=== PATIENT | male | born 1950 | race Caucasian/White ===

== ENCOUNTER 2016-11-07 16:14 | Inpatient (IN) | payer MEDICARE ==
[2016-11-07] MEDS ORDERED: Sodium Chloride 0.9% 1,000 ML ONE (16:37)
[2016-11-07] MEDS ORDERED: Sodium Chloride 0.9% 1,000 ML IV ONE (16:38)
--- NOTE | 2016-11-07 16:45 | C.PDOC ---
History Of Present Illness 66 y/o male, past medical history of HIV and on immunosuppressive anti-viral meds, c/o generalized abdominal pain for 3-4 days. Patient also reports nausea and states he has been unable to eat or drink. Also reports he has not had a bowel movement in 3 days and notes he has had painful urination. Denies any vomiting, fever, chills. Also notes he has been feeling generalized weakness. Time Seen by Provider: 11/07/16 16:22 Chief Complaint (Nursing): Abdominal Pain History Per: Patient History/Exam Limitations: no limitations Onset/Duration Of Symptoms: Days Current Symptoms Are (Timing): Still Present Location Of Pain/Discomfort: Diffuse Associated Symptoms: Nausea, Loss Of Appetite, Urinary Symptoms. denies: Fever , Chills, Vomiting, Diarrhea, Back Pain Recent travel outside of the [place]: No Past Medical History Reviewed: Historical Data, Nursing Documentation, Vital Signs Vital Signs: Last Vital Signs Temp 97.8 F 11/07/16 16:26 Pulse 73 11/07/16 16:26 Resp 18 11/07/16 16:26 BP 107/52 L 11/07/16 16:26 Pulse Ox 97 11/07/16 16:45 - Medical History PMH: HIV, HTN Family History: States: Unknown Family Hx - Social History Hx Alcohol Use: No Hx Substance Use: No - Immunization History Hx Tetanus Toxoid Vaccination: No Hx Influenza Vaccination: No Hx Pneumococcal Vaccination: No Review Of Systems Except As Marked, All Systems Reviewed And Found Negative. Constitutional: Positive for: Weakness. Negative for: Fever, Chills ENT: Negative for: Throat Pain Cardiovascular: Negative for: Chest Pain Respiratory: Negative for: Cough, Wheezing Gastrointestinal: Positive for: Nausea, Abdominal Pain, Constipation. Negative for: Vomiting, Diarrhea Genitourinary: Positive for: Dysuria. Negative for: Hematuria Musculoskeletal: Negative for: Back Pain Skin: Negative for: Rash Neurological: Negative for: Headache Physical Exam - Physical Exam Appears: Non-toxic, No Acute Distress Skin: Warm, Dry Head: Atraumatic, Normacephalic Oral Mucosa: Dry Neck: Supple Chest: Symmetrical Cardiovascular: Rhythm Regular Respiratory: Normal Breath Sounds, No Rales, No Rhonchi, No Wheezing Gastrointestinal/Abdominal: Bowel Sounds (active ), Soft, Tenderness (sporadic tenderness to deep palpation ), Distention, No Guarding, No Rebound Back: Normal Inspection Extremity: Normal ROM, Capillary Refill (< 2 sec.) Neurological/Psych: Oriented x3, Normal Speech, Normal Cognition ED Course And Treatment - Laboratory Results Result Diagrams: 11/07/16 16:44 11/07/16 16:44 Lab Interpretation: Abnormal Interpretation Of Abnormal: WBC 1.9 with 81% neutrophils. Urine WBC 43 with moderate bacteria and 3+ leukocyte esterase. O2 Sat by Pulse Oximetry: 97 (RA) Pulse Ox Interpretation: Normal - Other Rad Obstructive series X-Ray: Interpreted by Me Interpretation: Increased stool throughout colon without evidence of obstruction or free air. Progress Note: Treated with Toradol, Zofran, and IV fluids. Labs and obstructive series x-ray ordered. Reevaluation Time: 18:35 Reassessment Condition: Unchanged - Physician Consult Information Outcome Of Conversation: Case discussed with DR Kulkarni. Patient to be admitted for treatment of UTI in immunocompromised patient. Disposition - Disposition Disposition: HOSPITALIZED Disposition Time: 18:36 Condition: STABLE - POA Present On Arrival: None - Clinical Impression Clinical Impression: UTI (urinary tract infection), bacterial, HIV (human immunodeficiency virus infection) - Scribe Statement The provider has reviewed the documentation as recorded by the Leann Krause Provider Attestation: All medical record entries made by the Leann were at my direction and personally dictated by me. I have reviewed the chart and agree that the record accurately reflects my personal performance of the history, physical exam, medical decision making, and the department course for this patient. I have also personally directed, reviewed, and agree with the discharge instructions and disposition.
[2016-11-07 16:55] LABS: BASO % 0.4 % (0.0-2.0); EOS % 0.5 % (0.0-4.0); LYMPH # 0.2 K/uL (1.0-4.3); MEAN CORPUSCULAR HEMOGLOBIN 27.7 pg (27.0-31.0); MEAN CORPUSCULAR HGB CONC 31.8 g/dL (33.0-37.0); MEAN PLATELET VOLUME 10.3 fL (7.2-11.7); MONO # 0.4 K/uL (0.0-0.8); MONO % 20.2 % (0.0-10.0); RED CELL DISTRIBUTION WIDTH 15.7 % (11.5-14.5)
[2016-11-07 17:00] LABS: MEAN CELL VOLUME 87.2 fL (80.0-94.0); PLATELET COUNT 59 K/uL (130-400); WHITE BLOOD COUNT 1.9 K/uL (4.8-10.8)
[2016-11-07 17:15] LABS: CHLORIDE 107 mmol/L (98-107)
[2016-11-07 17:16] LABS: POTASSIUM 4.3 mmol/L (3.6-5.2); SODIUM 140 mmol/L (132-148)
[2016-11-07 17:18] LABS: ALB/GLOB RATIO 1.1 (1.0-2.1); ALKALINE PHOSPHATASE 146 U/L (38-126); AST/SGOT 65 U/L (17-59); BILIRUBIN,TOTAL 0.8 mg/dL (0.2-1.3); CARBON DIOXIDE 24 mmol/L (22-30); GFR AFRICAN-AMERICAN > 60
[2016-11-07 17:19] LABS: ALT/SGPT 50 U/L (21-72); BLOOD UREA NITROGEN 13 mg/dL (9-20); CALCIUM 8.4 mg/dl (8.6-10.4); GLUCOSE,RANDOM 266 mg/dL (75-110)
[2016-11-07 18:06] LABS: EOSINOPHIL 1 % (0-4); NEUTROPHIL 81 % (50-75); TOTAL CELLS COUNTED 100
[2016-11-07] MEDS ORDERED: cefTRIAXone IV 1 gm in Dextros 50 ML IVPB ONE ×2 (18:31→18:51)
[2016-11-07 20:25] LABS: RBC URINE < 1 /hpf (0-3); URINE BACTERIA RARE (<OCC); URINE BILIRUBIN NEGATIVE (NEGATIVE); URINE BLOOD NEGATIVE (NEGATIVE); URINE COLOR Amber (YELLOW); URINE GLUCOSE (UA) 3+ mg/dL (Normal); URINE KETONE NEGATIVE (NEGATIVE); URINE LEUKOCYTE ESTERASE NEG Leu/uL (Negative); URINE PROTEIN 1+ mg/dL (NEGATIVE); WBC URINE 3 /hpf (0-5)
--- NOTE | 2016-11-07 21:18 | CP.PCM.HP ---
History of Present Illness - History of Present Illness History of Present Illness: CC: stomach pain HPI: 66 M PMHx HIV+, HTN, DM2, Hepatitis C presenting with abdominal pain for 3- 4 days. Patient reports the pain began with no inciting event and has been intermittent over the past 3-4 days. He reports it is sharp stabbing and cramping in nature like a band across his stomach. He also reports no BM in 3 days and nausea but no vomiting. Patient has not eaten any solid food in 3 days but he has been drinking water and is hungry. He reports that when he went to the bathroom when bearing down/straining he would feel dizzy with the effort. He also complains of dysuria and burning on urination. Patient has increased urinary frequency but reports that he doesn't feel like he is urinating correctly and is straining. He denies shira hematuria but reports that he feels like his urine has been darker. He admits to chills, weakness, headache, dizziness, sore throat, abdominal pain, nausea, constipation, dysuria, urinary frequency, back pain, and a decrease in appetite. He denies fevers, diaphoresis , lightheadedness, change in vision, change in hearing, dysphagia, chest pain, palpitations, SOB, cough, vomiting, hematemesis, diarrhea, hematochezia, leg pain/swelling, rash, bruising, bleeding, travel, sickness, sick contacts. Patient is also a heroin abuser and has been injecting for the past 30 years on and off. Patient has tried to quit but relapses; last time he was on methadone was 2 years ago. Patient reports last use was day before admission when he injected 3 bags. He usually uses >3bags [basically however much he can get]. PMHx: HIV+, HTN, DM2, Hepatitis C PSHx: denies ALL: NKDA Medications: ASA 81mg po daily, Metformin 500mg po bid, Truvada, Ritonavir Social Hx: former tobacco use- quit 10 years ago but used to smoke 1 ppd for 10 days. Used to drink EtOH but has not drank in 17 years. Injects heroin >3bags/ day almost everyday or whenever he can over the past 30 years- patient has tried to quit but relapses; last use was the day before admission when he injected 3 bags. Used to be on methadone 2 years ago. Is on social security and does not work. Family Hx: mother and brother with "heart condition" father from CVA PMD: Gergorio ROS: Denies fevers, diaphoresis, lightheadedness, change in vision, change in hearing, dysphagia, chest pain, palpitations, SOB, cough, vomiting, hematemesis , diarrhea, hematochezia, leg pain/swelling, rash, bruising, bleeding, travel, sickness, sick contacts Admits chills, weakness, headache, dizziness, sore throat, abdominal pain, nausea, constipation, dysuria, urinary frequency, back pain, and a decrease in appetite Present on Admission - Present on Admission Any Indicators Present on Admission: No Review of Systems - Constitutional Constitutional: As Per HPI, Chills, Weakness. absent: Fever - EENT Eyes: As Per HPI. absent: Change in Vision Ears: As Per HPI, Dizziness. absent: Abnormal Hearing Nose/Mouth/Throat: As Per HPI, Sore Throat. absent: Dysphagia - Cardiovascular Cardiovascular: As Per HPI. absent: Chest Pain, Diaphoresis, Edema, Palpitations - Respiratory Respiratory: As Per HPI. absent: Cough, Chest Congestion - Gastrointestinal Gastrointestinal: As Per HPI, Abdominal Pain, Constipation, Cramping, Nausea. absent: Diarrhea, Vomiting - Genitourinary Genitourinary: As Per HPI, Dysuria, Urinary Frequency, Urinary Hesitance. absent: Hematuria, Pyuria - Musculoskeletal Musculoskeletal: As Per HPI, Back Pain. absent: Numbness, Tingling - Integumentary Integumentary: As Per HPI. absent: Rash, Wounds, Jaundice - Neurological Neurological: As Per HPI, Dizziness, Headaches, Weakness. absent: Numbness - Psychiatric Psychiatric: As Per HPI. absent: Anxiety, Depression - Endocrine Endocrine: As Per HPI. absent: Palpitations, Polydipsia, Polyphagia, Polyuria - Hematologic/Lymphatic Hematologic: As Per HPI. absent: Easy Bleeding, Easy Bruising, Lymphadenopathy Past Patient History - Infectious Disease Hx of Infectious Diseases: None - Past Social History Smoking Status: Former Smoker - CARDIAC Hx Hypertension: Yes - ENDOCRINE/METABOLIC Hx Diabetes Mellitus Type 2: Yes - HEMATOLOGICAL/ONCOLOGICAL Hx Human Immunodeficiency Virus (HIV): Yes - PSYCHIATRIC Hx Substance Use: No - SURGICAL HISTORY Hx Surgeries: No Meds Allergies/Adverse Reactions: Allergies Allergy/AdvReac Type Severity Reaction Status Date / Time No Known Allergies Allergy Unverified 03/25/15 20:54 Physical Exam - Constitutional Appears: Non-toxic, No Acute Distress - Head Exam Head Exam: ATRAUMATIC, NORMAL INSPECTION, NORMOCEPHALIC - Eye Exam Eye Exam: EOMI, Normal appearance. absent: Conjunctival injection, Scleral icterus - ENT Exam ENT Exam: Mucous Membranes Moist - Neck Exam Neck exam: Positive for: Full Rom, Normal Inspection. Negative for: Lymphadenopathy, Tenderness - Respiratory Exam Respiratory Exam: Clear to Auscultation Bilateral, NORMAL BREATHING PATTERN. absent: Accessory Muscle Use, Rales, Rhonchi, Wheezes, Respiratory Distress - Cardiovascular Exam Cardiovascular Exam: REGULAR RHYTHM, RRR, +S1, +S2. absent: Systolic Murmur - GI/Abdominal Exam GI & Abdominal Exam: Hyperactive Bowel Sounds, Soft, Tenderness (diffuse to deep palpation). absent: Firm, Guarding, Rigid - Extremities Exam Extremities exam: Positive for: normal capillary refill, normal inspection, pedal pulses present. Negative for: pedal edema, tenderness - Back Exam Back exam: NORMAL INSPECTION. absent: tenderness - Neurological Exam Neurological exam: Alert, CN II-XII Intact, Oriented x3 - Psychiatric Exam Psychiatric exam: Normal Affect, Normal Mood - Skin Skin Exam: Dry, Intact, Normal Color, Warm Results - Vital Signs Recent Vital Signs: Last Vital Signs Temp 97.9 F 11/07/16 20:18 Pulse 63 11/07/16 20:18 Resp 16 11/07/16 20:18 BP 123/61 11/07/16 20:18 Pulse Ox 97 11/07/16 20:18 - Labs Result Diagrams: 11/07/16 16:44 11/07/16 16:44 Labs: Laboratory Results - last 24 hr 11/07/16 20:13 Urine Color Aviva Urine Clarity Clear Urine pH 6.0 Ur Specific [place] 1.030 Urine Protein 1+ H Urine Glucose (UA) 3+ H Urine Ketones Negative Urine Blood Negative Urine Nitrate Negative Urine Bilirubin Negative Urine Urobilinogen 4.0 Ur Leukocyte Esterase Neg Urine WBC (Auto) 3 Urine RBC (Auto) < 1 Ur Squamous Epith Cells < 1 Urine Bacteria Rare Assessment & Plan - Assessment and Plan (Free Text) Assessment: 66 M PMHx HIV+, HTN, DM2, Hepatitis C presenting with abdominal pain for 3-4 days Plan: Urinary Tract Infection -f/u urine culture -Rocephin 1gm IVPB daily Abdominal pain -likely secondary to constipation likely secondary to heorin abuse -f/u obstructive series official read -f/u CT abdomen/pelvis -f/u repeat lipase in AM -NPO -Tylenol 650mg po q6 prn pain -Colace 100mg po daily -Miralax 17gm -Zofran 4mg ivp q6 prn -Protonix 40mg ivp daily Hx of HIV+ -f/u HIV panel and CD4 count -continue Ritonavir and Truvada -continue Hx of HTN -ASA 81 mg po daily -f/u Lipid panel -Patient normotensive -Monitor Hx of DM2 -f/u HgbA1c -RISS -Accucheck -D51/2NS @ 100cc/hr Hx of Hepatitis C -f/u acute hep panel -f/u abd u/s Hx of Heroin abuse -Psych Dr Zabala consulted PPX -SCD -Heparin 5000u sc q12 -Protonix 40mg ivp daily -Zofran 40mg ivp daily -Tylenol 650mg po q6 prn pain -D51/2NS @ 100cc/hr -NPO Case discussed with Dr. Shad Pimentel PGY1
[2016-11-07 21:29] VITALS: RESP 20
[2016-11-07] MEDS ORDERED: POLYETHYLENE GLYCOL 3350 17 GM/Dose PACKET PO ONE (22:03)
[2016-11-07] MEDS ORDERED: Alum-Mag Hydrox-Simethicone Susp (30 mL) PO STA (22:16)
[2016-11-07] MEDS: Dextrose 5%/0.45% NS 1,000 ML IV SCH (22:24)
[2016-11-08] MEDS: (Novolog) Insulin Aspart, Recombinant 100 u/ml 10 ml vial SC SCH ×3 (07:52→17:30)
[2016-11-08 07:55] LABS: BASO % 0.2 % (0.0-2.0); EOS % 0.3 % (0.0-4.0); HEMATOCRIT 32.5 % (35.0-51.0); LYMPH # 0.1 K/uL (1.0-4.3); LYMPH % 5.4 % (20.0-40.0); MEAN CELL VOLUME 87.2 fL (80.0-94.0); MEAN CORPUSCULAR HGB CONC 32.1 g/dL (33.0-37.0); MEAN PLATELET VOLUME 10.4 fL (7.2-11.7); MONO # 0.2 K/uL (0.0-0.8); NRBC % 0.1 % (0.0-2.0); PLATELET COUNT 57 K/uL (130-400); WHITE BLOOD COUNT 2.2 K/uL (4.8-10.8)
[2016-11-08] MEDS: Dextrose 5%/0.45% NS 1,000 ML IV SCH ×2 (08:04→13:44)
[2016-11-08 08:13] LABS: CHLORIDE 103 mmol/L (98-107); SODIUM 135 mmol/L (132-148)
[2016-11-08 08:14] LABS: POTASSIUM 3.6 mmol/L (3.6-5.2)
[2016-11-08 08:15] LABS: BILIRUBIN,TOTAL 0.7 mg/dL (0.2-1.3); CARBON DIOXIDE 23 mmol/L (22-30); GFR AFRICAN-AMERICAN > 60
[2016-11-08 08:16] LABS: ALB/GLOB RATIO 0.9 (1.0-2.1); ALKALINE PHOSPHATASE 176 U/L (38-126); ALT/SGPT 57 U/L (21-72); AST/SGOT 74 U/L (17-59); BLOOD UREA NITROGEN 9 mg/dL (9-20); CALCIUM 7.9 mg/dl (8.6-10.4); GLUCOSE,RANDOM 241 mg/dL (75-110); MAGNESIUM 1.7 mg/dL (1.6-2.3); PHOSPHOROUS 2.1 mg/dL (2.5-4.5); TOTAL PROTEIN 5.9 g/dL (6.3-8.3)
[2016-11-08 08:17] LABS: CHOLESTEROL 112 mg/dL (0-199)
[2016-11-08 08:22] VITALS: O2SAT 95
[2016-11-08 08:54] LABS: NEUTROPHIL 94 % (50-75); TOTAL CELLS COUNTED 100
--- NOTE | 2016-11-08 09:42 | RAD ---
PROCEDURE: Radiographs of the chest and abdomen (obstructive series) HISTORY: abd pain COMPARISON: No prior. TECHNIQUE: AP radiograph of the chest, with upright and supine radiographs of the abdomen. FINDINGS: CHEST: Lungs: Clear. Cardiovascular: Normal size heart. No pulmonary vascular congestion. Pleura: No pleural fluid. No pneumothorax. Other findings: None. ABDOMEN AND PELVIS: Bowel: Moderate stool retention, otherwise nremarkable bowel gas pattern. No evidence of mechanical obstruction. Free air: None. Bones: Thoraco lumbar spondylosis. Mild bilateral hip osteoarthrosis Other findings: None. IMPRESSION: No pulmonary infiltrate No evidence of mechanical bowel obstruction. Moderate stool retention. Arthrosis
[2016-11-08] MEDS ORDERED: Emtricitabine-Tenofovir 200 mg-300 mg Tab PO SCH (10:00)
--- NOTE | 2016-11-08 10:53 | PCM.PSYCH ---
Initial Psychiatric Evaluation - Initial Psychiatric Evaluation Type of Admission: Voluntary Legal Status: Capacity Chief Complaint (in patient's own words): I came here to get help.' History of Present Illness and Precipitating Events: Patient was seen and evaluated, chart reviewed and discussed with the nurse. The patient is a 66yo male who is here for heroin abuse. The patient states that he is , has a 34yo son and lives in an apartment in [place] with his mother. He says that he supports himself with SSD checks. He states that he shoots 3-10 bags of heroin a day but it depends on the day. He says he last used yesterday and has been using for about 30 years. He states that he did the Methadone program 3 years ago in [place] and that his longest sobriety was 4 months. He is experiencing withdrawal symptoms of nausea, vomiting, diarrhea, and abdominal pain. He also says that he could not sleep last night but denies any hallucinations, H/I, or S/I. He denies using any other drugs such as cocaine, PCP, LSD. He states that he used to smoke marijuana but quit 2 years ago. He also says he used to drink 1-2 packs of beer a day but quit 10 years ago. He has a past medical history of diabetes mellitus type 2, hypertension, Hepatitis C, and HIV. He states that he takes Metformin and antiretroviral medications and denies having any allergies. He denies a past psychiatric history or family history of psychiatric illnesses or substance abuse. He denies feelings of depression or anxiety. The patient appears to be very uncomfortable and agitated due to the withdrawal symptoms. He has appropriate affect and is organized in his thoughts as well as speech. Supportive therapy and psychoeducation were given. Current Medications: Active Medications Generic Name Dose Route Start Last Admin Trade Name Freq PRN Reason Stop Dose Admin Acetaminophen 650 mg 11/07/16 22:51 11/08/16 01:59 Tylenol 325mg Tab PO 650 mg Q6 PRN Administration Pain, moderate (4-7) Aspirin 81 mg 11/08/16 10:00 11/08/16 10:36 Aspirin Chewable PO 81 mg DAILY ALEX Administration Docusate Sodium 100 mg 11/08/16 10:00 11/08/16 10:36 Colace PO 100 mg DAILY ALEX Administration Emtricitabine/Tenofovir 1 tab 11/08/16 10:00 11/08/16 10:36 Truvada 200 Mg-300 Mg PO 1 tab DAILY ALEX Administration Ceftriaxone Sodium 1 gm/ 100 mls @ 100 mls/hr 11/08/16 10:00 11/08/16 10:37 Sodium Chloride IVPB 100 mls/hr DAILY ALEX Administration Dextrose/Sodium Chloride 1,000 mls @ 100 mls/hr 11/07/16 22:15 11/08/16 08:04 Dextrose 5%/0.45% Ns 1000 Ml IV 100 mls/hr .Q10H ALEX Administration Insulin Aspart 0 unit 11/08/16 07:30 11/08/16 07:52 Novolog SC 3 unit ACHS ALEX Administration Protocol Ondansetron HCl 4 mg 11/07/16 23:00 11/08/16 02:56 Zofran Inj IVP 4 mg Q6H PRN Administration Nausea/Vomiting Pantoprazole Sodium 40 mg 11/08/16 10:00 11/08/16 10:37 Protonix Inj IVP 40 mg DAILY ALEX Administration Ritonavir 100 mg 11/08/16 10:00 11/08/16 10:37 Norvir PO 100 mg DAILY ALEX Administration Past Psychiatric History - Past Psychiatric History Previous Treatment History: Inpatient Pertinent Medical Hx (Current Medical&Sleep Prob, Allergies): Allergies Allergy/AdvReac Type Severity Reaction Status Date / Time No Known Allergies Allergy Unverified 03/25/15 20:54 Emtricitabine/Tenofovir [Truvada 200 mg-300 mg] 1 tab PO DAILY 03/25/15 Ritonavir [Norvir] 100 mg PO DAILY 03/25/15 MetFORMIN mg PO BID 11/07/16 Review of Systems - Review of Systems All systems: reviewed and no additional remarkable complaints except - Psychiatric Psychiatric: Anxiety, Irritability. absent: Auditory Hallucinations, Suicidal Ideation, Visual Hallucinations Mental Status Examination - Personal Presentation Personal Presentation: Looks stated age - Affect Affect: Constricted - Motor Activity Motor Activity: Calm - Reliability in Providing Information Reliability in Providing Information: Fair - Speech Speech: Organized - Mood Mood: Anxious - Formal Thought Process Formal Thought Process: No Impairment - Obsessions/Compulsions Obsessions: No Compulsions: No - Cognitive Functions Orientation: Person, Place, Situation, Time Sensorium: Alert Attention/Concentration: Attentive Abstract Thinking: [place] Estimate of Intelligence: Below average Judgement: Imparied, as evidence by: Poor judgement, Intact, as evidence by: Insight regarding need for hospitalization - Risk Risk: Withdrawal, Diminished functioning - Limitations Limitations: Living alone DSM 5 DX - DSM 5 DSM 5 Diagnosis: Opioid use disorder severe Opioid withdrawal - Recommended/Plan of Treatment Treatment Recommendations and Plan of Treatment: Opioid use disorder severe Opioid withdrawal CBT Psycho education Supportive therapy Methadone taper Clonidine prn
[2016-11-08] MEDS ORDERED: Aluminum Hydroxide/Magnesium Hydroxide Susp (30 mL) PO PRN (10:54)
--- NOTE | 2016-11-08 10:55 | CP.PCM.PN ---
Subjective - Date & Time of Evaluation Date of Evaluation: 11/08/16 Time of Evaluation: 10:53 - Subjective Subjective: PGY-[address] Kulkarni's service: Pt seen and examined at bedside. Pt c/o of abdominal pain, worst in epigastric region, though better than admission after bowel movement. He also complains of nausea with episode of NBNB vomiting this AM. Pt admits to >3 bag heroin use daily via IV for the past 3 decades. He admits using "as much as I canc get that day." Last use was yesterday before coming to the hospital. Pt admits urinary symptoms, like burning during urination, and increased frequency. He denies chest pain, palpitations, headache, or leg swelling. Objective - Vital Signs/Intake and Output Vital Signs (last 24 hours): Temp Pulse Resp BP Pulse Ox 97.3 F L 69 20 145/66 95 11/08/16 08:19 11/08/16 08:19 11/08/16 08:19 11/08/16 08:19 11/08/16 08:19 - Medications Medications: Current Medications Acetaminophen (Tylenol 325mg Tab) 650 mg PO Q6 PRN PRN Reason: Pain, moderate (4-7) Last Admin: 11/08/16 01:59 Dose: 650 mg Aspirin (Aspirin Chewable) 81 mg PO DAILY [facility] Last Admin: 11/08/16 10:36 Dose: 81 mg Docusate Sodium (Colace) 100 mg PO DAILY [facility] Last Admin: 11/08/16 10:36 Dose: 100 mg Emtricitabine/Tenofovir (Truvada 200 Mg-300 Mg) 1 tab PO DAILY [facility] Last Admin: 11/08/16 10:36 Dose: 1 tab Ceftriaxone Sodium 1 gm/ (Sodium Chloride) 100 mls @ 100 mls/hr IVPB DAILY [facility] Last Admin: 11/08/16 10:37 Dose: 100 mls/hr Dextrose/Sodium Chloride (Dextrose 5%/0.45% Ns 1000 Ml) 1,000 mls @ 100 mls/hr IV .Q10H [facility] Last Admin: 11/08/16 08:04 Dose: 100 mls/hr Insulin Aspart (Novolog) 0 unit SC ACHS ALEX PRN Reason: Protocol Last Admin: 11/08/16 07:52 Dose: 3 unit Ondansetron HCl (Zofran Inj) 4 mg IVP Q6H PRN PRN Reason: Nausea/Vomiting Last Admin: 11/08/16 02:56 Dose: 4 mg Pantoprazole Sodium (Protonix Inj) 40 mg IVP DAILY [facility] Last Admin: 11/08/16 10:37 Dose: 40 mg Ritonavir (Norvir) 100 mg PO DAILY [facility] Last Admin: 11/08/16 10:37 Dose: 100 mg - Labs Labs: 11/08/16 07:33 11/08/16 07:33 APTT 27 SECONDS (21-34) 11/08/16 07:33 - Constitutional Appears: No Acute Distress, Chronically Ill - Head Exam Head Exam: ATRAUMATIC, NORMAL INSPECTION, NORMOCEPHALIC - Eye Exam Eye Exam: EOMI Pupil Exam: PERRL Additional comments: Pupils constricted - ENT Exam ENT Exam: Mucous Membranes Moist - Neck Exam Neck Exam: absent: Lymphadenopathy, Tenderness - Respiratory Exam Respiratory Exam: Clear to Ausculation Bilateral, NORMAL BREATHING PATTERN. absent: Rales, Rhonchi, Wheezes - Cardiovascular Exam Cardiovascular Exam: REGULAR RHYTHM, RRR, +S1, +S2 - GI/Abdominal Exam GI & Abdominal Exam: Soft, Tenderness (diffuse), Hyperactive Bowel Sounds - Extremities Exam Extremities Exam: Normal Capillary Refill, Normal Inspection. absent: Pedal Edema - Neurological Exam Neurological Exam: Alert, Awake, Oriented x3 Additional comments: No tremors noted - Psychiatric Exam Psychiatric exam: Normal Affect, Normal Mood - Skin Skin Exam: Normal Color, Warm Assessment and Plan - Assessment and Plan (Free Text) Assessment: 66 M PMHx HIV+, HTN, DM2, Hepatitis C presenting with abdominal pain for 3-4 days Plan: Urinary Tract Infection UA (11/06/16): -f/u urine culture -Rocephin 1gm IVPB daily Abdominal pain -likely secondary to constipation from heroin abuse -obstructive series (11/07/16): No evidence of mechanical obstruction (see full report) -f/u CT abdomen/pelvis -Repeat lipase this am: WNL -NPO except meds -Tylenol 650mg po q6 prn pain -Colace 100mg po daily -Miralax 17gm -Zofran 4mg ivp q6 prn -Protonix 40mg ivp daily Hx of HIV+ -HIV panel: positive and CD4 count -continue Ritonavir and Truvada Hx of HTN -ASA 81 mg po daily -Lipid panel WNL -Patient normotensive -Monitor Hx of DM2 -HgbA1c 8.5 -RISS -Accucheck -D51/2NS @ 100cc/hr Hx of Hepatitis C -Hep C positive panel -Abd u/s (11/08/16): Cholelithiasis. Small ascites adjacent to GB. CBD measuring 8mm. 0.8cm midpole right renal cyst (see full report) Hx of Heroin abuse -Psych Dr Zabala consulted - started methadone taper, clonidine, imodium PPX -SCD -Heparin 5000u sc q12 (hold) -Protonix 40mg ivp daily -Zofran 40mg ivp daily -Tylenol 650mg po q6 prn pain -D51/2NS @ 100cc/hr -NPO Case discussed with Dr. Shad Jacobs PGY1
--- NOTE | 2016-11-08 11:28 | US ---
HISTORY: abd pain COMPARISON: None available. TECHNIQUE: Sonographic evaluation of the abdomen. FINDINGS: LIVER: Measures 18.4 cm in sagittal dimension. Nodular hepatic contour. Echogenic liver may be seen in setting of hepatic parenchymal disease or fatty infiltration. No focal hepatic mass identified. Appearance of the portal vein indicates near occlusive thrombus with portal vein demonstrating minimal vascularity. No intrahepatic bile duct dilatation. GALLBLADDER: Gallstones. No gallbladder wall thickening. Negative sonographic Merritt's sign as assessed by the foundry engineer. COMMON BILE DUCT: Measures 8 mm. PANCREAS: Not well visualized. RIGHT KIDNEY: Measures 12.2 x 3.7 x 5.2 cm. No obstructing calculus or hydronephrosis identified. Probable renal cyst within the midpole measuring approximately 0.7 x 0.8 x 0.7 cm. LEFT KIDNEY: Measures 12.2 x 4.8 x 4.9 cm. No obstructing calculus or hydronephrosis identified. SPLEEN: Measures approximately 18.4 cm. AORTA: Limited views appear unremarkable. IVC: Limited views appear unremarkable. OTHER FINDINGS: Small ascites noted adjacent to the gallbladder wall. IMPRESSION: Nodular hepatic contour consistent with cirrhosis. Echogenic liver may be seen in setting of hepatic parenchymal disease or fatty infiltration. Appearance of the portal vein indicates near occlusive thrombus with portal vein demonstrating minimal vascularity. Splenomegaly. Cholelithiasis. Small ascites adjacent to the gallbladder Common bile duct is dilated measuring approximately 8 mm. 0.8 cm midpole right renal cyst. Additional incidental findings as above. Findings discussed with PAL Golden on 11/08/16 at 11:22 a.m..
[2016-11-08] MEDS ORDERED: Iohexol 240 (50 ml) PO ONE (12:00)
[2016-11-08 16:28] VITALS: BP 117/70; PULSE 58; TEMP 98.3
--- NOTE | 2016-11-08 18:41 | CT ---
PROCEDURE: CT Abdomen and Pelvis with contrast HISTORY: ABD PAIN COMPARISON: None. TECHNIQUE: Contrast dose: Oral contrast only. Radiation dose: Total exam DLP = 553.28 mGy-cm. This CT exam was performed using one or more of the following dose reduction techniques: Automated exposure control, adjustment of the mA and/or kV according to patient size, and/or use of iterative reconstruction technique. FINDINGS: LOWER THORAX: Unremarkable. LIVER: Cirrhotic appearing liver without focal abnormality. GALLBLADDER AND BILE DUCTS: Cholelithiasis without CT evidence of acute cholecystitis. PANCREAS: Diffuse inflammatory changes involving the pancreas consistent with acute pancreatitis. Absence of intravenous contrast precludes assessment for necrotizing pancreatitis. SPLEEN: Splenomegaly. Large left upper quadrant varices. Dilated splenic vein. Absence of intravenous contrast precludes optimal assessment the portal venous system. ADRENALS: Unremarkable. No mass. KIDNEYS AND URETERS: Unremarkable. No hydronephrosis. No solid mass. VASCULATURE: Unremarkable. No aortic aneurysm. BOWEL: Collapsed stomach, out gastric wall thickening incompletely characterized due to absence of oral contrast in the stomach. Diverticulosis without an acute inflammatory component. Nonspecific thickening of the wall of the cecum and ascending colon. Focal colitis should be considered. No discrete intraluminal mass or polypoid lesion identified. APPENDIX: No abnormalities to suggest acute appendicitis. No right lower quadrant inflammatory processes identified. PERITONEUM: Small volume ascites. No free air identified. LYMPH NODES: Unremarkable. No enlarged lymph nodes. BLADDER: Unremarkable. REPRODUCTIVE: Unremarkable. BONES: No acute fracture. OTHER FINDINGS: None. IMPRESSION: 1. Segmental thickening of the wall of the ascending colon primarily affecting the cecum and to lesser extent remainder the ascending colon compatible with colitis. 2. Inflammatory changes about the pancreas suggestive of acute pancreatitis. 3. Cholelithiasis without CT evidence of acute cholecystitis. 4. Cirrhotic liver. Splenomegaly. Overall appearance in the presence of left upper quadrant venous varicosities suggest portal hypertension.
--- NOTE | 2016-11-08 21:59 | CP.PCM.DIS ---
Provider - Provider Date of Admission: 11/07/16 18:37 Attending physician: Deondre Kulkarni Jr, MD Primary care physician: none Dr. Kulkarni, attending, while in hospital Consults: Dr. Zabala, psychiatry Time Spent in preparation of Discharge (in minutes): 45 Diagnosis - Discharge Diagnosis (1) HIV (human immunodeficiency virus infection) Status: Chronic Comment: Pt AMA before viral load resulted (2) UTI (urinary tract infection), bacterial Status: Acute Comment: pt admitting UTI symptoms: frequency, urgency. UA: negative nitrate, LE Hospital Course - Lab Results Lab Results: Most Recent Lab Values WBC 2.2 K/uL (4.8-10.8) L 11/08/16 07:33 RBC 3.73 Mil/uL (4.40-5.90) L 11/08/16 07:33 Hgb 10.5 g/dL (12.0-18.0) L 11/08/16 07:33 Hct 32.5 % (35.0-51.0) L 11/08/16 07:33 MCV 87.2 fL (80.0-94.0) 11/08/16 07:33 MCH 28.0 pg (27.0-31.0) 11/08/16 07:33 MCHC 32.1 g/dL (33.0-37.0) L 11/08/16 07:33 RDW 16.0 % (11.5-14.5) H 11/08/16 07:33 Plt Count 57 K/uL (130-400) L 11/08/16 07:33 MPV 10.4 fL (7.2-11.7) 11/08/16 07:33 Neut % (Auto) 83.1 % (50.0-75.0) H 11/08/16 07:33 Lymph % (Auto) 5.4 % (20.0-40.0) L 11/08/16 07:33 [place] % (Auto) 11.0 % (0.0-10.0) H 11/08/16 07:33 Eos % (Auto) 0.3 % (0.0-4.0) 11/08/16 07:33 Baso % (Auto) 0.2 % (0.0-2.0) 11/08/16 07:33 Neut # 1.8 K/uL (1.8-7.0) 11/08/16 07:33 Lymph # 0.1 K/uL (1.0-4.3) L 11/08/16 07:33 [place] # 0.2 K/uL (0.0-0.8) 11/08/16 07:33 Eos # 0.0 K/uL (0.0-0.7) 11/08/16 07:33 Baso # 0.0 K/uL (0.0-0.2) 11/08/16 07:33 Neutrophils % (Manual) 94 % (50-75) H 11/08/16 07:33 Lymphocytes % (Manual) 3 % (20-40) L 11/08/16 07:33 Monocytes % (Manual) 3 % (0-10) 11/08/16 07:33 Eosinophils % (Manual) 1 % (0-4) 11/07/16 16:44 Platelet Estimate Decreased (NORMAL) L 11/08/16 07:33 Polychromasia Slight 11/08/16 07:33 Hypochromasia (manual) Slight 11/08/16 07:33 Anisocytosis (manual) Slight 11/08/16 07:33 Smear Path Review 11/07/16 16:44 APTT 27 SECONDS (21-34) 11/08/16 07:33 Sodium 135 mmol/L (132-148) 11/08/16 07:33 Potassium 3.6 mmol/L (3.6-5.2) 11/08/16 07:33 Chloride 103 mmol/L (98-107) 11/08/16 07:33 Carbon Dioxide 23 mmol/L (22-30) 11/08/16 07:33 Anion Gap 13 (10-20) 11/08/16 07:33 BUN 9 mg/dL (9-20) 11/08/16 07:33 Creatinine 0.5 MG/DL (0.8-1.5) L 11/08/16 07:33 Est GFR ( Amer) > 60 11/08/16 07:33 Est GFR (Non-Af Amer) > 60 11/08/16 07:33 POC Glucose (mg/dL) 250 mg/dL (65-110) H 11/08/16 16:10 Random Glucose 241 mg/dL (75-110) H 11/08/16 07:33 Hemoglobin A1c 8.5 % (4.2-6.5) H 11/08/16 07:33 Calcium 7.9 mg/dl (8.6-10.4) L 11/08/16 07:33 Phosphorus 2.1 mg/dL (2.5-4.5) L 11/08/16 07:33 Magnesium 1.7 mg/dL (1.6-2.3) 11/08/16 07:33 Total Bilirubin 0.7 mg/dL (0.2-1.3) 11/08/16 07:33 AST 74 U/L (17-59) H 11/08/16 07:33 ALT 57 U/L (21-72) 11/08/16 07:33 Alkaline Phosphatase 176 U/L (38-126) H D 11/08/16 07:33 Total Protein 5.9 g/dL (6.3-8.3) L 11/08/16 07:33 Albumin 2.8 g/dL (3.5-5.0) L 11/08/16 07:33 Globulin 3.1 gm/dL (2.2-3.9) 11/08/16 07:33 Albumin/Globulin Ratio 0.9 (1.0-2.1) L 11/08/16 07:33 Triglycerides 57 mg/dL (0-149) 11/08/16 07:33 Cholesterol 112 mg/dL (0-199) 11/08/16 07:33 LDL Cholesterol Direct 71 mg/dL (0-129) 11/08/16 07:33 HDL Cholesterol 32 mg/dL (30-70) 11/08/16 07:33 Lipase 29 U/L (23-300) 11/08/16 07:33 Urine Color Aviva (YELLOW) 11/07/16 20:13 Urine Clarity Clear (Clear) 11/07/16 20:13 Urine pH 6.0 (5.0-8.0) 11/07/16 20:13 Ur Specific [place] 1.030 (1.003-1.030) 11/07/16 20:13 Urine Protein 1+ mg/dL (NEGATIVE) H 11/07/16 20:13 Urine Glucose (UA) 3+ mg/dL (Normal) H 11/07/16 20:13 Urine Ketones Negative mg/dL (NEGATIVE) 11/07/16 20:13 Urine Blood Negative (NEGATIVE) 11/07/16 20:13 Urine Nitrate Negative (NEGATIVE) 11/07/16 20:13 Urine Bilirubin Negative (NEGATIVE) 11/07/16 20:13 Urine Urobilinogen 4.0 mg/dL (0.2-1.0) 11/07/16 20:13 Ur Leukocyte Esterase Neg [place]/uL (Negative) 11/07/16 20:13 Urine WBC (Auto) 3 /hpf (0-5) 11/07/16 20:13 Urine RBC (Auto) < 1 /hpf (0-3) 11/07/16 20:13 Urine WBC Clumps (Auto) Cancelled 11/07/16 17:49 Ur Squamous Epith Cells < 1 /hpf (0-5) 11/07/16 20:13 Ur Transition Epith Cell Cancelled 11/07/16 17:49 Ur Renal Epithelial Cell Cancelled 11/07/16 17:49 Calcium Carbonate Cryst Cancelled 11/07/16 17:49 Calcium Phos Nelia (Auto) Cancelled 11/07/16 17:49 Calcium Oxalate Crystal Cancelled 11/07/16 17:49 Leucine Crystals Cancelled 11/07/16 17:49 Cystine Crystals Cancelled 11/07/16 17:49 Uric Acid Crystals Cancelled 11/07/16 17:49 Triple Phos Crystals Cancelled 11/07/16 17:49 Tyrosine Crystals Cancelled 11/07/16 17:49 Other Crystals Cancelled 11/07/16 17:49 Amorphous Sediment Cancelled 11/07/16 17:49 Urine Bacteria Rare (<OCC) 11/07/16 20:13 Epithelial Casts (Auto) Cancelled 11/07/16 17:49 Fatty Casts Cancelled 11/07/16 17:49 Hyaline Casts Cancelled 11/07/16 17:49 Granular Casts (Auto) Cancelled 11/07/16 17:49 Waxy Casts Cancelled 11/07/16 17:49 Broad Casts Cancelled 11/07/16 17:49 RBC Casts Cancelled 11/07/16 17:49 WBC Casts Cancelled 11/07/16 17:49 Other Casts Cancelled 11/07/16 17:49 Urine Trichomonas Cancelled 11/07/16 17:49 Ur Yeast w Hyphae Cancelled 11/07/16 17:49 Urine Yeast (Budding) Cancelled 11/07/16 17:49 Urine Sperm (Auto) Cancelled 11/07/16 17:49 Ur Oval Fat Bodies Auto Cancelled 11/07/16 17:49 Hepatitis A IgM Ab Negative (NEGATIVE) 11/08/16 07:33 Hep Bs Antigen Negative (NEGATIVE) 11/08/16 07:33 Hep B Core IgM Ab Negative (NEGATIVE) 11/08/16 07:33 Hepatitis C Antibody Reactive (NEGATIVE) H 11/08/16 07:33 HIV 1&2 Antibody Screen Reactive (NEGATIVE) H 11/08/16 07:33 - Hospital Course Hospital Course: On admission: 66 M PMHx HIV+, HTN, DM2, Hepatitis C presenting with abdominal pain for 3-4 days. Patient reports the pain began with no inciting event and has been intermittent over the past 3-4 days. He reports it is sharp stabbing and cramping in nature like a band across his stomach. He also reports no BM in 3 days and nausea but no vomiting. Patient has not eaten any solid food in 3 days but he has been drinking water and is hungry. He reports that when he went to the bathroom when bearing down/straining he would feel dizzy with the effort. He also complains of dysuria and burning on urination. Patient has increased urinary frequency but reports that he doesn't feel like he is urinating correctly and is straining. He denies shira hematuria but reports that he feels like his urine has been darker. He admits to chills, weakness, headache, dizziness, sore throat, abdominal pain, nausea, constipation, dysuria, urinary frequency, back pain, and a decrease in appetite. He denies fevers, diaphoresis , lightheadedness, change in vision, change in hearing, dysphagia, chest pain, palpitations, SOB, cough, vomiting, hematemesis, diarrhea, hematochezia, leg pain/swelling, rash, bruising, bleeding, travel, sickness, sick contacts. Patient is also a heroin abuser and has been injecting for the past 30 years on and off. Patient has tried to quit but relapses; last time he was on methadone was 2 years ago. Patient reports last use was day before admission when he injected 3 bags. He usually uses >3bags [basically however much he can get]. Hospital course: Pt admitted on 11/07 for abdominal pain. extermination supervisor heroin user, UDS positive. HIV positive confirmed on lab panel. OBstructive series negative. Pt Hep C positive, US showed cholelithiasis (no cholecystitis), splenomegaly. Pt receiving Rocephin for UTI symptoms. Pt left AMA on 11/08. Discharge Exam - Additional Findings Additional findings: - Constitutional Appears: No Acute Distress, Chronically Ill - Head Exam Head Exam: ATRAUMATIC, NORMAL INSPECTION, NORMOCEPHALIC - Eye Exam Eye Exam: EOMI Pupil Exam: PERRL Additional comments: Pupils constricted - ENT Exam ENT Exam: Mucous Membranes Moist - Neck Exam Neck Exam: absent: Lymphadenopathy, Tenderness - Respiratory Exam Respiratory Exam: Clear to Ausculation Bilateral, NORMAL BREATHING PATTERN. absent: Rales, Rhonchi, Wheezes - Cardiovascular Exam Cardiovascular Exam: REGULAR RHYTHM, RRR, +S1, +S2 - GI/Abdominal Exam GI & Abdominal Exam: Soft, Tenderness (diffuse), Hyperactive Bowel Sounds - Extremities Exam Extremities Exam: Normal Capillary Refill, Normal Inspection. absent: Pedal Edema - track aguilar noted on arms - Neurological Exam Neurological Exam: Alert, Awake, Oriented x3 Additional comments: No tremors noted - Psychiatric Exam Psychiatric exam: Normal Affect, Normal Mood - Skin Skin Exam: Normal Color, Warm Discharge Plan - Follow Up Plan Condition: STABLE Disposition: AGAINST MEDICAL ADVICE
== END 2016-11-08 20:30 | disposition left against medical advice (07) | DRG 977 ==
LOC: C.ER 16:14 → C.9E 18:37 → C.3T 19:58
PROVIDERS: ADMIT Internal Medicine; ATTEND Internal Medicine
DX: B20 Human immunodeficiency virus [HIV] disease (principal); I10 Essential (primary) hypertension; N39.0 Urinary tract infection, site not specified; F11.23 Opioid dependence with withdrawal; Z79.899 Other long term (current) drug therapy; Z82.3 Family history of stroke; B19.20 Unspecified viral hepatitis C without hepatic coma; E11.9 Type 2 diabetes mellitus without complications; K59.00 Constipation, unspecified; K80.20 Calculus of gallbladder without cholecystitis without obstruction; Z87.891 Personal history of nicotine dependence